=== PATIENT | female | born 1935 | race Caucasian/White ===

== ENCOUNTER 2019-04-10 07:56 | Inpatient (IN) | payer BC, MEDICARE ==
[~2019-04-10] VITALS: Ht 160 cm; Wt 89.8 kg
[2019-04-10] VITALS (7 sets, daily range): BP systolic 139–189; BP diastolic 73–87
[~2019-04-10 07:56] MED LIST: TRAMADOL HCL50 MG; Z.0.ANASTROZOLE1 MG; Z.0.LASIX20 MG; Z.0.LIPITOR20 MG; Z.0.LOPID600 MG; Z.0.LOTREL 10-20 M1; Z.0.METOPROLOL SUC10; Z.0.SERTRALINE HCL10
--- OUTSIDE RECORDS SUMMARY | 2019-04-10 07:58 | XMS REPORT ---
Author Author [facility] Address Unknown Phone Unavailable Care Team Providers Care Sock Drier Name Role Phone Unavailable Unavailable Payers Payer Name Policy Type Policy Number Effective Date Expiration Date Problems This patient has no known problems. Allergies, Adverse Reactions, Alerts Allergy Name Allergy Type Status Severity Reaction(s) Onset Date Inactive Date Treating Clinician Comments iodine DA Active SV 2009-09-08 00:00:00 nitrofurantoin DA Active WI 2009-09-08 00:00:00 simvastatin DA Active WI 2009-09-08 00:00:00 dicyclomine DA Active WI 2009-09-08 00:00:00 barium iodide DA Active WI 2009-09-08 00:00:00 Medications This patient has no known medications.
[2019-04-10] MEDS ORDERED: NITROGLYCERIN 2% OINT 1 GM PKT TOP ONE (08:30)
[2019-04-10 08:37] LABS: BASOPHILS % 0.3 % (0.0-1.0); EOSINOPHILS # (AUTO) 0.3 (0.0-0.4); HEMATOCRIT 37.4 % (34.2-44.1); HEMOGLOBIN 12.6 g/dL (12.0-16.0); LYMPHOCYTES # (AUTO) 2.8 (1.0-3.2); LYMPHOCYTES % 28.4 % (18.0-39.1); MEAN CORPUSCULAR HEMOGLOBIN 32.1 pg (28-32); MEAN CORPUSCULAR HGB CONC 33.7 g/dL (31-35); MEAN CORPUSCULAR VOLUME 95.2 fL (81-99); MONOCYTES % 9.7 % (4.4-11.3); NEUTROPHILS # (AUTO) 5.7 (2.1-6.9); NEUTROPHILS % 58.2 % (38.7-80.0); PLATELET COUNT 189 x10e3/uL (140-360); RED BLOOD COUNT 3.93 x10e6/uL (3.6-5.1); RED CELL DISTRIBUTION WIDTH 14.3 % (11.7-14.4)
[2019-04-10] MEDS ORDERED: ULTRAM50 MG PO (08:42)
[2019-04-10] MEDS ORDERED: LASIX20 MG PO (08:42)
[2019-04-10] MEDS ORDERED: DIOVAN160 MG PO (08:42)
[2019-04-10] MEDS ORDERED: ATORVASTATIN CA10 MG PO (08:42)
[2019-04-10] MEDS ORDERED: NOVOLOG MI100 UNIT/1 (08:42)
[2019-04-10] MEDS ORDERED: HYDRALAZINE HCL10 MG PO (08:42)
[2019-04-10] MEDS ORDERED: METOPROLOL SUCC50 MG PO (08:42)
--- NOTE | 2019-04-10 08:57 | Diagnostic Imaging Report ---
EXAMINATION: CHEST SINGLE (PORTABLE) INDICATION: ^SOB ?CHF ^[id number] ^[id number] COMPARISON: None FINDINGS: AP view TUBES and LINES: None. LUNGS: Limited by body habitus. Pulmonary vascular congestion and mild to moderate interstitial edema. PLEURA: No visible pneumothorax. Small bilateral pleural effusions. HEART AND MEDIASTINUM: The cardiomediastinal silhouette is enlarged. Aorta is calcified and mildly tortuous. BONES AND SOFT TISSUES: No acute osseous lesion. Soft tissues are unremarkable. UPPER ABDOMEN: No free air under the diaphragm. IMPRESSION: Enlarged cardiomediastinal silhouette, pulmonary vascular congestion, and mild to moderate interstitial edema. Small bilateral pleural effusions. Underlying atelectasis/pneumonia cannot be excluded. Signed by: Dr. Jose Portillo MD on 04/10/2019 8:54 AM
[2019-04-10 09:17] LABS: BILIRUBIN,URINE NEGATIVE (NEGATIVE); CLARITY,URINE SL CLOUDY (CLEAR); COLOR,URINE YELLOW (YELLOW); KETONES,URINE NEGATIVE (NEGATIVE); LEUKOCYTE ESTERASE ,URINE NEGATIVE (NEGATIVE); NITRITE,URINE NEGATIVE (NEGATIVE); URINE UROBILINOGEN 0.2 mg/dL (0.2 - 1)
[2019-04-10 09:20] LABS: PROTEIN,URINE DIPSTICK 3+ (NEGATIVE)
[2019-04-10 09:30] LABS: BACTERIA,URINE MODERATE /HPF
[2019-04-10] MEDS ORDERED: FUROSEMIDE INJ 10 MG/ML 4 ML VIAL IV ONE (09:30)
[2019-04-10 09:31] LABS: EPITHELIAL CELLS,URINE FEW /LPF; RBC,URINE 0-5 /HPF (0-5); TRANSITIONAL EPI CELLS,URINE RARE; WBC,URINE (MAN) 0-5 /HPF (0-5)
[2019-04-10 09:32] LABS: INR 0.89; PROTHROMBIN TIME 12.5 seconds (11.9-14.5)
[2019-04-10 09:33] LABS: PARTIAL THROMBOPLASTIN TIME 29.4 seconds (23.8-35.5)
[2019-04-10 09:42] LABS: ALBUMIN 2.9 g/dL (3.5-5.0); ALBUMIN/GLOBULIN RATIO 0.9 (0.8-2.0); ANION GAP 13.3 mmol/L (8-16); CALCIUM 10.5 mg/dL (8.4-10.2); CREATININE, SERUM 1.27 mg/dL (0.57-1.11); MAGNESIUM 1.6 MG/DL (1.3-2.1); POTASSIUM 3.3 mmol/L (3.5-5.1)
[2019-04-10] MEDS ORDERED: POTASSIUM CHLORIDE 20 MEQ TAB CR PO STA (09:58)
[2019-04-10] MEDS ORDERED: MORPHINE SULFATE INJ 4 MG/ML INJ 1ML IV PRN (10:15)
[2019-04-10] MEDS ORDERED: ONDANSETRON HCL INJ 2MG/ML 2ML 2 MG/ML VIAL IV PRN (10:15)
[2019-04-10] MEDS ORDERED: DEXTROSE 50% SYRINGE 50 ML IV PRN (10:15)
[2019-04-10] MEDS: FAMOTIDINE 20 MG/2 ML VIAL IV SCH ×2 (10:56→21:09)
[2019-04-10] MEDS ORDERED: TRAMADOL HCL 50 MG TAB PO PRN (11:45)
--- NOTE | 2019-04-10 12:00 | NUR ---
RECEIVED PT FROM ER. WANDA2. PT FAMILY AT BEDSIDE. BED IS AT THE LOWEST POSITION AND LOCKED. BED ALARM IS ON. CALL LIGHT WITH IN EASY REACH. INSTRUCTED PT TO CALL FOR NEEDS. PT DENIES NEEDS AT THIS TIME.
--- NOTE | 2019-04-10 12:20 | NUR ---
PT IS POOR HISTORIAN. UNABLE TO COLLECT INFORMATION. NO FAMILY PRESENT WITH PT.
[2019-04-10] MEDS: HYDRALAZINE HCL 10 MG TAB PO SCH (13:15)
[2019-04-10] MEDS: INSULIN LISPRO 100 UNIT/1 ML 3ML VIAL SQ SCH ×4 (13:30→20:30)
[2019-04-10] MEDS: METOPROLOL SUCCINATE 50 MG TAB XL PO SCH (13:53)
--- NOTE | 2019-04-10 14:34 | Consultation ---
DATE OF CONSULTATION: 04/10/2019 Cardiology Consultation ATTENDING PHYSICIAN: Dr. Magdi Grimaldo. Thank you so much for asking me to see this nice lady again in consultation. REASON FOR CONSULTATION: Ms. Solomon is a pleasant, but very elderly 83-year-old woman, known to me for many years, who presents to the emergency room with a complaint of shortness of breath. HISTORY OF PRESENT ILLNESS: The patient and her cannot provide me any details and the son is sitting at the bedside. She has not been seen in my office in many years and actually certainly not seen in the last year since she had fracture of her hip from falling in June 2018 with repair. She denies any chest pain or palpitations and notes that her weight has been going up, but she and her both tell me that they are not aware that she is taking a "fluid pill." PAST MEDICAL HISTORY: Significant for previously known coronary artery disease with two stents placed in the right coronary in 2002. She has had a longstanding and severe hypertension. She has had previous cervical cancer and breast cancer and longstanding diabetes. She had a remote cholecystectomy, spine surgery, and breast surgery. MEDICATIONS: Recent home medications include atorvastatin 10 mg daily, furosemide 20 mg daily, hydralazine 10 mg daily, metoprolol succinate 100 mg daily, Diovan 160 mg daily, and tramadol p.r.n. PERSONAL AND SOCIAL HISTORY: She does not smoke or drink and she lives at home with her . REVIEW OF SYSTEMS: CARDIAC: She denies any chest pain or palpitations. PHYSICAL EXAMINATION: GENERAL: At this time shows a pleasant, but very elderly obese woman, about 5 feet 3 inches tall, weighing well over 200 pounds. VITAL SIGNS: Blood pressure 170/70. HEAD, EYES, EARS, NOSE, and THROAT: Unremarkable. THORAX: Heart sounds S1, S2 are equal. No murmurs. Lungs have fine bibasilar crackles. ABDOMEN: Markedly protuberant. EXTREMITIES: Have 1+ pretibial edema. LABS AND DIAGNOSTICS: EKG shows sinus rhythm with left bundle-branch block which was seen on EKG in 2018, but not present on EKG in 2004. Pertinent laboratory studies show sodium 141, potassium 3.3, chloride 104, bicarb 27, glucose 136, BUN 26, creatinine 1.2. CBC shows hemoglobin 12.6, hematocrit 37.7, white count 9.8. Current echocardiogram suggest that her left ventricular function is less than 20%. EF of interest is that echocardiogram on June 12, 2018, showed mild left ventricular hypertrophy, normal systolic function, EF of 52%, reduced diastolic compliance, prominent epicardial fat pad, trace tricuspid regurgitation, and right ventricular systolic pressure normal. ASSESSMENT: 1. Exacerbation of congestive heart failure. 2. New diagnosis of cardiomyopathy. 3. Left bundle-branch block seen on EKG in 2017, but not present in 2005. 4. Longstanding severe hypertension. 5. Type 2 adult-onset diabetes. 6. Obesity. 7. Advanced age. PLAN: We will continue home medications and give her diuretics and review echocardiogram with further management based on clinical course. Her prognosis is guarded. MD FREDERICK Goodwin/MODL /[id number]
--- NOTE | 2019-04-10 17:22 | NUR ---
PT IS COMPLAINING OF PAIN. PER THE PT, SHE IS TAKING TRAMADOL WITH TYLENOL. PAGED DR. ANN OFFICE. NO NEW ORDERS RECEIVED.
[2019-04-10] MEDS: ACETAMINOPHEN 325 MG TAB PO PRN ×2 (18:02→22:07)
--- NOTE | 2019-04-10 19:00 | NUR ---
BEDSIDE SHIFT REPORT GIVEN TO THE NURSE INFORMATICS EDUCATOR RN. PT DENIED FURTHER NEEDS.
[2019-04-10] MEDS: TRAMADOL HCL 50 MG TAB PO PRN ×2 (19:09→23:31)
[2019-04-10] MEDS: FUROSEMIDE INJ 10 MG/ML 4 ML VIAL IV SCH (20:10)
[2019-04-10] MEDS: VALSARTAN 160 MG TAB PO SCH (20:11)
[2019-04-10] MEDS ORDERED: DIGOXIN INJ 0.25 MG/ML 2 ML AMP IV ONE (22:00)
--- NOTE | 2019-04-10 22:01 | NUR ---
NOTIFIED DR ROACH PATIENT WAS RUNNING AFIB. BP 139/79 HR 137. NEW ORDER RECEIVED
[2019-04-11] VITALS (8 sets, daily range): BP systolic 164–186; BP diastolic 70–77
[2019-04-11 06:06] LABS: BASOPHILS # (AUTO) 0.1 (0.0-0.1); BASOPHILS % 0.7 % (0.0-1.0); EOSINOPHILS # (AUTO) 0.2 (0.0-0.4); EOSINOPHILS % 3.2 % (0.0-6.0); HEMATOCRIT 34.5 % (34.2-44.1); HEMOGLOBIN 11.2 g/dL (12.0-16.0); LYMPHOCYTES # (AUTO) 2.3 (1.0-3.2); LYMPHOCYTES % 32.4 % (18.0-39.1); MEAN CORPUSCULAR HEMOGLOBIN 31.6 pg (28-32); MEAN CORPUSCULAR HGB CONC 32.5 g/dL (31-35); MEAN CORPUSCULAR VOLUME 97.5 fL (81-99); MONOCYTES # (AUTO) 0.9 (0.2-0.8); NEUTROPHILS # (AUTO) 3.6 (2.1-6.9); NEUTROPHILS % 50.1 % (38.7-80.0); PLATELET COUNT 146 x10e3/uL (140-360); RED BLOOD COUNT 3.54 x10e6/uL (3.6-5.1); RED CELL DISTRIBUTION WIDTH 14.1 % (11.7-14.4)
[2019-04-11 06:24] LABS: ALBUMIN 2.7 g/dL (3.5-5.0); ALBUMIN/GLOBULIN RATIO 0.9 (0.8-2.0); ANION GAP 13.4 mmol/L (8-16); CALCIUM 9.7 mg/dL (8.4-10.2); CHOL/HDL RATIO 2.8 (3.0-3.6); CREATININE, SERUM 1.34 mg/dL (0.57-1.11); POTASSIUM 3.4 mmol/L (3.5-5.1)
[2019-04-11 06:45] LABS: CREATINE KINASE MB 0.9 ng/mL (0-5.0)
--- NOTE | 2019-04-11 07:00 | NUR ---
BEDSIDE SHIFT REPORT RECEIVED FROM THE FLOWER ARRANGER RN. PT DENIES NEEDS AT THIS TIME.
[2019-04-11] MEDS: INSULIN LISPRO 100 UNIT/1 ML 3ML VIAL SQ SCH ×4 (07:30→21:47)
[2019-04-11] MEDS: HYDRALAZINE HCL 10 MG TAB PO SCH (08:57)
[2019-04-11] MEDS: ASPIRIN 81 MG ENTERIC COATED PO SCH (08:58)
[2019-04-11] MEDS: METOPROLOL SUCCINATE 50 MG TAB XL PO SCH ×2 (08:59→10:05)
[2019-04-11] MEDS: FUROSEMIDE INJ 10 MG/ML 4 ML VIAL IV SCH ×2 (09:03→21:45)
--- NOTE | 2019-04-11 10:03 | NUR ---
SKY TO ADMINISTER METOPROLOL PER DR. THOMAS.
[2019-04-11] MEDS ORDERED: POTASSIUM CHLORIDE 20 MEQ TAB CR PO SCH (10:45)
[2019-04-11] MEDS: FAMOTIDINE 20 MG/2 ML VIAL IV SCH (11:10)
[2019-04-11] MEDS ORDERED: HYDRALAZINE HCL 10 MG TAB PO SCH (12:00)
[2019-04-11] MEDS: HYDRALAZINE HCL 25 MG TAB PO SCH ×2 (12:47→17:00)
[2019-04-11 14:08] LABS: CREATINE KINASE MB 0.9 ng/mL (0-5.0)
--- NOTE | 2019-04-11 16:38 | Progress Note ---
DATE: 04/11/2019 Internal Medicine Progress Note SUBJECTIVE: The patient is sleeping comfortably. PHYSICAL EXAMINATION: VITAL SIGNS: Blood pressure 169/72, temperature 97.8, heart rate 64 per minute, respiratory rate 18 per minute, oxygen saturation 99%. HEART: Showed regular rhythm. Normal S1, S2 sound. LUNGS: Clear bilaterally. ABDOMEN: Soft. EXTREMITIES: Show no evidence of cyanosis or hematoma. LABORATORY DATA: BMP; sodium 142, potassium 3.4, chloride 104, CO2 28, BUN 26, creatinine 1.34, glucose 144. CBC; white count 7.22, hemoglobin 11.2, hematocrit 34.5, platelet count of 146,000. PT 12.5, INR 0.89, PTT 29.4. AST 21, ALT 15, total bilirubin 0.6, alkaline phosphatase 60. FINAL IMPRESSION: 1. Acute on chronic systolic congestive heart failure with ejection fraction of 20%. 2. Hypertension. 3. Coronary artery disease. 4. Anemia of chronic disease. 5. Acute renal failure with chronic renal insufficiency. 6. Hypokalemia. PLAN OF TREATMENT: We are going to continue aspirin 81 mg daily, Zofran 4 mg IV every 4 hours as needed, morphine 2 mg IV every 3 hours as needed, hydralazine 10 mg daily, Tylenol 650 mg q.4 hours as needed for pain or fever, Pepcid 20 mg twice a day, metoprolol 100 mg daily, Crestor 10 mg daily, furosemide 40 mg twice a day, valsartan 320 mg daily. Continue monitoring blood sugar before meals and at bedtime. Continue tramadol 50 mg q.6 hours. I am going to add potassium 20 mEq daily due to the low potassium and recheck a BMP tomorrow. We need to increase the hydralazine to 25 mg twice a day. MD LAURA Perez/ELSA /[id number]
[2019-04-11] MEDS ORDERED: HYDRALAZINE HCL 25 MG TAB PO SCH (17:00)
--- NOTE | 2019-04-11 17:53 | NUR ---
Nutrition Screen Note RD Recommendation for Physician: -Rec adding cardiac to ADA 1800 diet Plan of Care: RD following, monitoring for tolerance and adequacy Nutrition reason for involvement: Diagnosis Primary Diagnose(s): 1. Exacerbation of congestive heart failure. 2. New diagnosis of cardiomyopathy. PMH: CAD, HTN, cervical cancer, breast cancer, DM Ht: 63in Wt: 198lb BMI: 35.1kg/m2 IBW: 115lb +/- 10% RD Assessment: (04/11) Chart reviewed. Labs and meds reviewed. 83yo F, who was admitted for CHF exacerbation. Visited pt in the room. Pt was sleeping. Per , pt has had good appetite with 75% observed lunch intake. No complains of nausea or vomiting. Normal BM. No chewing or swallowing difficulty noted. Pt has gained 6-7lbs in the last 5-6 months. Apparently, stated her CHF was newly diagnosed and not aware that pt was taking a fluid pill. RD offered education on low sodium diet but was not interested. Will continue to monitor and follow. Current Diet: ADA 1800 Malnutrition Evaluation (04/11/2019) The patient does not meet criteria for a specified degree of malnutrition at this time. Will re-evaluate at follow-up as appropriate. Diet Education Needs Assessment: Diet education indicated, is not interested. Briefly discussed importance of low sodium intake and weight management. Nutrition Care Level: low Signed: Ynes Stearns MS, RD, LD
--- NOTE | 2019-04-11 19:00 | NUR ---
Bedside report received from morning nurse. Pt alert to name. Lying in bed. Denies pain at this time. O2 @3L via NC. Call blevins within reach. Bed low and locked. Will continue to monitor.
--- NOTE | 2019-04-11 19:00 | NUR ---
BEDSIDE SHIFT REPORT GIVEN TO THE ELECTRIC MOTOR WINDERS ASSEMBLER RN. PT DENIED FURTHER NEEDS.
[2019-04-11] MEDS: CRESTOR 10MG PO SCH ×2 (21:45→21:48)
[2019-04-12] VITALS (8 sets, daily range): BP systolic 134–187; BP diastolic 59–79
[2019-04-12 05:40] LABS: ANION GAP 15.5 mmol/L (8-16); CALCIUM 9.5 mg/dL (8.4-10.2); CREATININE, SERUM 1.31 mg/dL (0.57-1.11); POTASSIUM 3.5 mmol/L (3.5-5.1)
[2019-04-12] MEDS: HYDRALAZINE HCL 25 MG TAB PO SCH ×4 (06:00→17:28)
[2019-04-12] MEDS: INSULIN LISPRO 100 UNIT/1 ML 3ML VIAL SQ SCH ×4 (07:30→21:00)
[2019-04-12] MEDS: VALSARTAN 160 MG TAB PO SCH (09:35)
[2019-04-12] MEDS: ASPIRIN 81 MG ENTERIC COATED PO SCH (09:35)
[2019-04-12] MEDS: METOPROLOL SUCCINATE 50 MG TAB XL PO SCH (09:35)
[2019-04-12] MEDS: FUROSEMIDE INJ 10 MG/ML 4 ML VIAL IV SCH ×2 (09:35→21:45)
[2019-04-12] MEDS: POTASSIUM CHLORIDE 20 MEQ TAB CR PO SCH (09:35)
--- NOTE | 2019-04-12 12:15 | NUR ---
MD notified regarding increased agitation and confusion to pt. New orders received at this time.
--- NOTE | 2019-04-12 16:28 | Progress Note ---
DATE: 04/12/2019 Internal Medicine Progress Note SUBJECTIVE: The patient is doing well. . PHYSICAL EXAMINATION: VITAL SIGNS: Blood pressure 134/59, temperature 98.7, heart rate 75 per minute, respiratory rate 22 per minute, oxygen saturation 98%. HEART: Regular rhythm. Normal S1, S2 sound. LUNGS: Clear bilaterally. ABDOMEN: Soft. EXTREMITIES: No evidence of cyanosis or hematoma. LABORATORY DATA: BMP; sodium 144, potassium 3.5, chloride 103, CO2 29, BUN 27, creatinine 1.31, glucose 201. CBC; white blood count 7.22, hemoglobin 11.2, hematocrit 34.5, platelet count 146,000. PT 12.5, INR 0.89, PTT 29.4. AST 21, ALT 16, total bilirubin 0.6, alkaline phosphatase 60. IMPRESSION: 1. Acute on chronic systolic congestive heart failure with an ejection fraction of 20%. 2. Hypertension with hypertensive nephropathy. 3. Coronary artery disease. 4. Chronic anemia. 5. Acute on chronic renal failure. 6. Hypokalemia. 7. Uncontrolled diabetes mellitus type 2 with chronic renal failure. PLAN OF TREATMENT: 1. Continue aspirin 81 mg daily. 2. Zofran 4 mg IV q.4 hours as needed. 3. Morphine 2 mg IV q.3 hours as needed. 4. Valsartan 320 mg daily. 5. Hydralazine 25 mg q.6 hours. 6. Furosemide 40 mg IV twice a day. 7. Tramadol 50 mg q.4 hours. 8. Potassium chloride 20 mEq daily. 9. Continue monitoring blood sugar before meals and at bedtime. 10. We are going to start glimepiride 2 mg daily because of the persistent hyperglycemia. 11. Continue Tylenol 650 mg q.4 hours as needed for pain or fever. 12. Metoprolol 100 mg daily. 13. Crestor 10 mg daily. We are going to continue monitoring BUN, creatinine, and electrolytes. Case has been discussed with Dr. Kevyn Farris, Cardiology service. The patient had a very severe cardiomyopathy. MD LAURA Perez/ELSA /[id number]
[2019-04-12] MEDS: CRESTOR 10MG PO SCH (21:45)
--- NOTE | 2019-04-12 21:50 | NUR ---
PATIENT ASSISTED WITH ADLS, NO RESPIRATORY DISTRESS OBSERVED. DIABETIC SNACKS PROVIDED, BED ALARM ON, CALL LIGHT WITHIN EASY REACH.
[2019-04-13] VITALS (7 sets, daily range): BP systolic 140–181; BP diastolic 66–76
[2019-04-13] MEDS: HYDRALAZINE HCL 25 MG TAB PO SCH ×4 (00:28→17:49)
--- NOTE | 2019-04-13 00:30 | NUR ---
BLOOD PRESSURE 181/76, HEART RATE 75. SCHEDULE HYDRALAZINE ADMINISTERED ORDERED, NO DISTRESS OBSERVED AND PATIENT DENIES PAIN.
[2019-04-13] MEDS: TRAMADOL HCL 50 MG TAB PO PRN ×2 (03:22→17:21)
--- NOTE | 2019-04-13 03:23 | NUR ---
PATIENT WAS ASSISTED TO THE RESTROOM BY THE PCT, SHE'S NOW BACK IN BED WITH BED ALARM ON AND CALL LIGHT WITHIN EASY REACH. SHE C/O HEADACHE, MEDICATED WITH TRAMADOL ORDERED, INSTRUCTED TO CALL FOR ASSISTANCE NEEDED.
[2019-04-13 06:40] LABS: ANION GAP 15.6 mmol/L (8-16); CALCIUM 9.4 mg/dL (8.4-10.2); CREATININE, SERUM 1.29 mg/dL (0.57-1.11); POTASSIUM 3.6 mmol/L (3.5-5.1)
[2019-04-13] MEDS: INSULIN LISPRO 100 UNIT/1 ML 3ML VIAL SQ SCH ×4 (07:30→21:00)
[2019-04-13] MEDS: GLIMEPIRIDE 2 MG TAB PO SCH (09:42)
[2019-04-13] MEDS: FUROSEMIDE INJ 10 MG/ML 4 ML VIAL IV SCH (09:42)
[2019-04-13] MEDS: ASPIRIN 81 MG ENTERIC COATED PO SCH (09:42)
[2019-04-13] MEDS: METOPROLOL SUCCINATE 50 MG TAB XL PO SCH (09:43)
[2019-04-13] MEDS: VALSARTAN 160 MG TAB PO SCH (09:43)
[2019-04-13] MEDS: POTASSIUM CHLORIDE 20 MEQ TAB CR PO SCH (09:43)
--- NOTE | 2019-04-13 16:11 | Progress Note ---
DATE: 04/13/2019 Internal Medicine Progress Note SUBJECTIVE: The patient is doing well. No significant complaint. PHYSICAL EXAMINATION: VITAL SIGNS: Blood pressure 162/71, temperature 97.4 degrees Fahrenheit, heart rate 78 per minute, respiratory rate 19 per minute, and oxygen saturation 98%. HEART: Showed regular rhythm. Normal S1, S2 sound. LUNGS: Clear bilaterally. ABDOMEN: Soft. EXTREMITIES: Show no evidence of cyanosis or hematoma. LABORATORY DATA: Sodium 142, potassium 3.6, chloride 102, CO2 of 28, BUN 31, creatinine 1.29, and glucose 289. On CBC, white count 7.22, hemoglobin 11.2, hematocrit 34.5, and platelet count 146,000. PT 12.5, INR 0.89, PTT 29.4. AST 21, ALT 15, total bilirubin 0.6, and alkaline phosphatase 60. FINAL IMPRESSION: 1. Homau-ng-zyrotfi systolic congestive heart failure, which is resolving. 2. Hypertension with renal insufficiency. 3. Coronary artery disease. 4. Anemia of chronic disease. 5. Cpmix-cp-ewzptse renal insufficiency, stage 3. 6. Hypokalemia. 7. Uncontrolled diabetes mellitus type 2 with chronic renal insufficiency. PLAN OF TREATMENT: Continue aspirin 81 mg daily. Continue Zofran 4 mg q.4 hours as needed, morphine 2 mg IV q.3 hours as needed, D50 IV push as needed, valsartan 320 mg daily, hydralazine 25 mg q.6 hours, furosemide 40 mg twice a day, tramadol 50 mg q.4 hours as needed, potassium chloride 20 mEq daily. Continue monitoring blood sugar before meal and at bedtime. Continue diabetic renal diet. Continue Tylenol 650 mg p.o. q.4 hours as needed for pain or fever. Continue glimepiride 2 mg daily, metoprolol 100 mg daily, and Crestor 10 mg daily. She will be DNR. The patient is doing well. We might be able to switch the furosemide to p.o. and hopefully discharge soon. MD LAURA Perez/ELSA /[id number]
[2019-04-13] MEDS: FUROSEMIDE 40 MG TAB PO SCH (17:49)
--- NOTE | 2019-04-13 19:26 | NUR ---
Patient received asleep in bed. Arousable to tactile stimuli. No signs of pain, discomfort or respiratory distress noted. Telemetry in place recording SR at 73 (Right bundle branch block). Fall precautions implemented. Call light within reach.
[2019-04-13] MEDS: INSULIN GLARGINE 100 UNITS/ML VIAL SQ SCH (21:00)
[2019-04-13] MEDS: CRESTOR 10MG PO SCH (21:22)
[2019-04-14] VITALS (8 sets, daily range): BP systolic 128–154; BP diastolic 60–70
[2019-04-14] MEDS: HYDRALAZINE HCL 25 MG TAB PO SCH ×4 (00:35→17:53)
[2019-04-14] MEDS: TRAMADOL HCL 50 MG TAB PO PRN (03:08)
--- NOTE | 2019-04-14 06:25 | NUR ---
Patient's IV in right arm infiltrated. Old IV removed with tip intact. New IV inserted in Right forearm 22G. Patient tolerated well. Addendum: 04/14/19 at 0730 by Edmond Durand RN Above entry for wrong patient.
[2019-04-14] MEDS: FUROSEMIDE 40 MG TAB PO SCH ×2 (06:33→17:53)
[2019-04-14] MEDS: ACETAMINOPHEN 325 MG TAB PO PRN ×2 (06:41→21:28)
--- NOTE | 2019-04-14 07:16 | NUR ---
Shift report given to oncoming nurse.
[2019-04-14] MEDS: INSULIN LISPRO 100 UNIT/1 ML 3ML VIAL SQ SCH ×4 (07:30→21:00)
[2019-04-14] MEDS: GLIMEPIRIDE 2 MG TAB PO SCH (08:21)
[2019-04-14] MEDS: POTASSIUM CHLORIDE 20 MEQ TAB CR PO SCH (08:21)
[2019-04-14] MEDS: VALSARTAN 160 MG TAB PO SCH (08:21)
[2019-04-14] MEDS: METOPROLOL SUCCINATE 50 MG TAB XL PO SCH (08:21)
[2019-04-14] MEDS: ASPIRIN 81 MG ENTERIC COATED PO SCH (08:21)
--- NOTE | 2019-04-14 15:31 | NUR ---
IMM letter delivered and explained to pt. She verbalized understanding. Signed copy placed in chart. Copy to pt.
--- NOTE | 2019-04-14 19:13 | NUR ---
bedside rounds done with oncoming nurse, pt lying in bed, resp even and unlabored. call light within reach.
--- NOTE | 2019-04-14 19:19 | NUR ---
Patient received asleep in bed. Arousable to tactile stimuli. No signs of pain or respiratory distress. Bed locked and in lowest position. Bed rails up x 2. Call light within reach.
[2019-04-14] MEDS: INSULIN GLARGINE 100 UNITS/ML VIAL SQ SCH (21:00)
[2019-04-14] MEDS: CRESTOR 10MG PO SCH (21:37)
--- NOTE | 2019-04-14 22:50 | NUR ---
Patient's IV on left wrist infiltrated. Old IV removed with tip intact. Patient refused insertion of new IV because of her pending discharge tomorrow morning. Patient instructed of the importance of having vascular access for IV antibiotics and medical emergencies, but she still declined.
[2019-04-15] MEDS: HYDRALAZINE HCL 25 MG TAB PO SCH ×3 (00:04→12:10)
[2019-04-15 00:17] VITALS: BP 108/68
[2019-04-15 03:28] VITALS: BP 108/68
--- NOTE | 2019-04-15 05:05 | NUR ---
quality control technician called reporting patient's rhythm as Afib with a HR of 132. EKG done with the following result: Wide QRS rhythm with premature supraventricular complexes. Dr. Farris notified. No new order received.
[2019-04-15] MEDS: FUROSEMIDE 40 MG TAB PO SCH (05:13)
[2019-04-15 05:43] LABS: ANION GAP 15.6 mmol/L (8-16); CALCIUM 9.2 mg/dL (8.4-10.2); CREATININE, SERUM 1.16 mg/dL (0.57-1.11); POTASSIUM 3.6 mmol/L (3.5-5.1)
[2019-04-15 05:48] VITALS: BP 98/63
--- NOTE | 2019-04-15 07:00 | NUR ---
Walking rounds done. Shift report given o oncoming nurse about patient's status.
[2019-04-15] MEDS: INSULIN LISPRO 100 UNIT/1 ML 3ML VIAL SQ SCH ×2 (07:30→11:30)
--- NOTE | 2019-04-15 07:30 | NUR ---
REC'D PT AAOX3, EATING BREAKFAST, ON OXYGEN 2L/MIN, NO S/S OF DISTRESS. TELE BOX#24 RUNNING AT SR, LEFT AC IV INTACT AND PATENT. SIDE RAILS UPX2, BED IN LOWEST POSITION, AND CALL GRAY WITHIN REACH.
[2019-04-15 07:44] VITALS: BP 187/81
[2019-04-15] MEDS: ASPIRIN 81 MG ENTERIC COATED PO SCH (08:27)
[2019-04-15] MEDS: GLIMEPIRIDE 2 MG TAB PO SCH (08:27)
[2019-04-15] MEDS: VALSARTAN 160 MG TAB PO SCH (08:28)
[2019-04-15] MEDS: POTASSIUM CHLORIDE 20 MEQ TAB CR PO SCH (08:28)
[2019-04-15] MEDS: METOPROLOL SUCCINATE 50 MG TAB XL PO SCH (08:29)
[2019-04-15] MEDS ORDERED: ONDANSETRON HCL 4 MG ORAL DISINTEGRATING TAB PO PRN (10:45)
[2019-04-15 11:55] VITALS: BP 151/68
--- NOTE | 2019-04-15 15:00 | NUR ---
DR. ANN PLACED DISCHARGE ORDER.
[2019-04-15 16:00] VITALS: BP 158/65
--- NOTE | 2019-04-15 16:00 | NUR ---
PT DISCUSSED IN BARRIER ROUNDS, ON IV LASIX, MAY SWITCH TO PO AND DISCHARGE HOME TODAY OR TOMORROW.
--- NOTE | 2019-04-15 17:22 | NUR ---
PATIENTS IV REMOVED WITHOUT ANY COMPLICATIONS. DISCHARGE PAPERS GIVEN AND EXPLAINED TO PATIENT AND HER SON. AND TO ALSO FOLLOW UP WITH PCP IN 1-2 WEEKS. TELE BOX REMOVED. ESCORTED PATIENT TO FRONT OF HOSPITAL AND INTO SON'S CAR.
--- NOTE | 2019-05-20 05:01 | Discharge Summary ---
CHIEF COMPLAINT: Progressive shortness of breath and postural nocturnal dyspnea. FINAL DIAGNOSES: Acute on chronic congestive heart failure, coronary artery disease, and hypertension. DISPOSITION: Home. HOSPITAL COURSE: 83-year-old female with known history of diabetes type 2, essential systolic hypertension, and chronic systolic congestive heart failure, presents to the ER with a 3-day history of progressive shortness of breath and possible nocturnal dyspnea. No complaints of chest pain. No nausea, vomiting, or cough. She underwent review and evaluation in the emergency room. Chest was revealing inspiratory crackles with basilar rales. X-rays blood work were being conducted, findings were showing evidence of acute pulmonary edema. The patient was admitted for treatment regarding increased shortness of breath with a 3-day history, acute on chronic systolic congestive heart failure, diabetes type 2, coronary artery disease, essential systolic hypertension along with admission, for care, we will be initiating IV Lasix, we are monitoring the patient's electrolyte status along with blood pressure, requesting a Cardiology followup. With admission with her presentation of complaint, she underwent cardiology review per Dr. Farris, at his evaluation his impression was exacerbation of congestive heart failure, new diagnosis of cardiomyopathy, left bundle-branch block in 2018, it was not present and 2005; long-standing severe hypertension; type 2 adult onset diabetes; obesity; and advanced age. Recommend continuing home medications, maintaining diuretics. Prognosis is guarded. The patient was waiting for room placement in the ER, was receiving ADA diet. Underwent cardiology evaluation by Dr. Farris in the ER. Laboratory studies were being watched closely. She was upgraded to the Medical Surgical floor from the ER, and was noted to have a slightly decreased potassium and Dr. Farris also noted the patient was having cardiomyopathy, which has developed in the past year. The patient was resting comfortably, was having no new complaints. Her medications are being adjusted as needed. Lab studies were being watched closely. She has some issues where her EKGs were showing episodes of atrial flutter. Medications are being further be adjusted. She began to feel better overall. She was in no acute distress. Continued to receive diuretics. BP was continued to be monitored closely. Potassium was noted to have stabilized now. Dr. Farris was further following and making comments that the patient was not a good candidate for anticoagulation. Recommending compassionate care. The patient was cleared for discharge, she was able to be released home on 04/15/2019 in guarded condition. IMAGING: Chest findings shows enlarged cardiomediastinal silhouette, pulmonary vascular congestion and [id number] interstitial edema. Small bilateral pleural effusions. Underlying atelectasis or pneumonia cannot be excluded. Cultures; urine noncontributory. LABORATORY DATA: Laboratory studies were showing stable CBCs. Urinalysis showing 3+ protein, 0-5 rbc's by high-power field, 0-5 wbc's by high-power field, moderate amount of bacteria. Chemistries: Begins with electrolyte panel revealing a low potassium at 3.3. Kidney functions; normal BUN and creatinine was 1.27. Initial glucose 136. BNP was noted to be 1180. Cardiac enzymes were stable for 3 sets. Blood sugars were further monitored, blood sugars as high as 304. Final blood sugar 231, final potassium 3.6, final BUN 33 and creatinine 1.16. As mentioned, the patient is stabilized. She will be discharged home and continue following up for management on outpatient basis. She will continue on a cardiac diet. No equipments or supplies necessary. No drains or Saini needed. Activity level as directed by myself as well as Dr. Farris. The patient will be following up with her PCP within 7 to 10 days. She will continue on atorvastatin 10 mg p.o. at 9 p.m., Lasix 20 mg daily, hydralazine 10 mg p.o. daily, NovoLog mix 70/30 as directed, metoprolol succinate 100 mg p.o. daily, Ultram 50 mg p.o. p.r.n. for pain, and Diovan 320 p.o. daily. Any questions or concerns, she might have any recurrence of similar symptoms, she will be contacting her PCP on the phone. Dictated by DALJIT Fisher Maurice Grimaldo MD CC/MODL /[id number]
== END 2019-04-15 18:28 | disposition home or self-care (01) | DRG 291 ==
LOC: ER 07:56 → ERHOLD 10:11 → MED/SURG2 12:56
DX: I13.0 Hypertensive heart and chronic kidney disease with heart failure and stage 1 through stage 4 chronic kidney disease, or unspecified chronic kidney disease (principal); I50.23 Acute on chronic systolic (congestive) heart failure; N17.9 Acute kidney failure, unspecified; I25.10 Atherosclerotic heart disease of native coronary artery without angina pectoris; Z88.8 Allergy status to other drugs, medicaments and biological substances; E66.9 Obesity, unspecified; Z68.35 Body mass index [BMI] 35.0-35.9, adult; D63.8 Anemia in other chronic diseases classified elsewhere; E87.6 Hypokalemia; E11.21 Type 2 diabetes mellitus with diabetic nephropathy; E11.22 Type 2 diabetes mellitus with diabetic chronic kidney disease; E11.65 Type 2 diabetes mellitus with hyperglycemia; N18.3 Chronic kidney disease, stage 3 (moderate); Z95.5 Presence of coronary angioplasty implant and graft; Z79.4 Long term (current) use of insulin
CPT/HCPCS: 36415; 71045; 80048; 80053; 80061; 81001; 82550; 82553; 82948; 83735; 83880; 84484; 85025; 85610; 85730; 87086; 93005; 93306; 96372; 96376; 99285; J1160; J1815; J1940; J2270

== ENCOUNTER 2019-08-12 08:41 | Inpatient (IN) | payer BC, MEDICARE ==
[~2019-08-12] VITALS: Ht 152.4 cm; Wt 77.6 kg
[~2019-08-12 08:41] MED LIST changes: +ATORVASTATIN CA10 MG PO; +DIOVAN160 MG PO; +HYDRALAZINE HCL10 MG PO; +LASIX20 MG PO; +METOPROLOL SUCC50 MG PO; +NOVOLOG MI100 UNIT/1; +ULTRAM50 MG PO
[2019-08-12] MEDS ORDERED: PANTOPRAZOLE 40 MG 10ML VIAL IV STA (09:16)
[2019-08-12] MEDS ORDERED: SODIUM CHLORIDE 0.9% 1000ML 1,000 ML IV STA (09:16)
[2019-08-12] MEDS ORDERED: ONDANSETRON HCL INJ 2MG/ML 2ML 2 MG/ML VIAL IV PRN (09:30)
[2019-08-12] MEDS ORDERED: FOLIC ACID 5 MG/ML VIAL IV ONE (09:30)
[2019-08-12] MEDS ORDERED: DEXTROSE 50% SYRINGE 50 ML IV PRN (09:30)
[2019-08-12 09:44] LABS: BASOPHILS % 0.4 % (0.0-1.0); EOSINOPHILS # (AUTO) 0.2 (0.0-0.4); EOSINOPHILS % 2.4 % (0.0-6.0); HEMOGLOBIN 12.7 g/dL (12.0-16.0); LYMPHOCYTES # (AUTO) 2.8 (1.0-3.2); LYMPHOCYTES % 34.5 % (18.0-39.1); MEAN CORPUSCULAR HEMOGLOBIN 31.6 pg (28-32); MEAN CORPUSCULAR HGB CONC 33.4 g/dL (31-35); MEAN CORPUSCULAR VOLUME 94.5 fL (81-99); MONOCYTES # (AUTO) 0.9 (0.2-0.8); MONOCYTES % 11.1 % (4.4-11.3); NEUTROPHILS # (AUTO) 4.2 (2.1-6.9); NEUTROPHILS % 51.2 % (38.7-80.0); PLATELET COUNT 186 x10e3/uL (140-360); RED BLOOD COUNT 4.02 x10e6/uL (3.6-5.1); RED CELL DISTRIBUTION WIDTH 14.6 % (11.7-14.4)
[2019-08-12 09:48] LABS: INR 0.88; PROTHROMBIN TIME 12.4 seconds (11.9-14.5)
[2019-08-12 09:49] LABS: PARTIAL THROMBOPLASTIN TIME 25.3 seconds (23.8-35.5)
--- NOTE | 2019-08-12 09:49 | Diagnostic Imaging Report ---
EXAMINATION: Head CT HISTORY: Left-sided facial drooping and weakness since the night before, acute stroke syndrome, evaluate for CVA COMPARISON: None. TECHNIQUE: Multidetector axial images were obtained without contrast from the foramen magnum to the vertex . The images were reconstructed using brain and bone algorithms. Thin section brain images were reformatted into coronal and sagittal planes. Image quality: Motion/streaking artifact limits the evaluation of the skull base and posterior cranial fossa. Dose modulation, iterative reconstruction, and/or weight based adjustment of the mA/kV was utilized to reduce the radiation dose to as low as reasonably achievable. FINDINGS: Parenchyma: 1. Focal hypodensity in the left frontal centrum semiovale may correspond to acute ischemic lacunar infarct. 2. Additional hypodensity lateral to the left head of the caudate nucleus may correspond with age-indeterminate, likely chronic lacunar infarct. 3. Also subtle hypodensity in the right central thalamus may correspond to a recent ischemic lacunar infarct. 4. Few scattered mildly confluent periventricular and hassan radiata white matter hypodensities, most likely nonspecific chronic microvascular ischemic changes. 5. Cortical/subcortical hypodensity in the right lateral pre and postcentral gyri with focal swelling is consistent with acute infarction. 6. No mass or hemorrhage. No CT evidence of acute territorial vascular insult. Extra-axial spaces:No abnormal density. No extra-axial fluid collections Brain volume: Normal for age. Ventricles: No hydrocephalus or displacement. Arteries: No density suggestive of thrombus. Dural sinuses: No abnormal density. Extra-axial spaces: No abnormal density. Foramen magnum: No mass, Chiari malformation, or basilar invagination. Sella: No obvious mass. Paranasal/mastoid sinuses: Imaged portions unremarkable. Skull/Scalp: No lytic or blastic lesions. No fractures. IMPRESSION: 1. 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 A CT angiogram of the head and neck with contrast is recommended to evaluate for large vessel occlusion as the patient is within the window for thrombectomy. 2. Age indeterminate ischemic lacunar infarcts in the left frontal centrum semiovale, lateral to the left caudate nucleus and right thalamus. 3. No acute intracranial hemorrhage. The findings were discussed with the ER nurse practitioner Dayami Chavarria on 08/12/2019 at 9:40 AM Signed by: Dr. Anat Reina M.D. on 08/12/2019 9:46 AM
[2019-08-12 09:58] LABS: ALBUMIN 3.2 g/dL (3.5-5.0); ALBUMIN/GLOBULIN RATIO 0.9 (0.8-2.0); ANION GAP 17.3 mmol/L (8-16); CALCIUM 10.7 mg/dL (8.4-10.2); CREATININE, SERUM 1.62 mg/dL (0.57-1.11); POTASSIUM 4.3 mmol/L (3.5-5.1)
--- NOTE | 2019-08-12 09:59 | Diagnostic Imaging Report ---
EXAMINATION: CHEST SINGLE (PORTABLE) INDICATION: Chest pain COMPARISON: Chest radiograph of 04/10/2019 FINDINGS: LINES/TUBES:EKG leads overlie the chest. LUNGS:The lung volumes are low. There is central pulmonary vascular congestion. There is perihilar fullness and indistinctness of the pulmonary vasculature. Patchy opacity at the left lung base. PLEURA:No pleural effusion or pneumothorax. MEDIASTINUM:Cardiomediastinal silhouette is stably enlarged. Atherosclerotic calcifications of the thoracic aorta. BONES/SOFT TISSUES:No acute osseous injury. ABDOMEN:No free air under the diaphragm. IMPRESSION: Unchanged cardiomegaly. Mild pulmonary interstitial edema. Patchy opacity at the left lung base, more likely subsegmental atelectasis than superimposed aspiration or pneumonia. Signed by: Lubna Rowell MD on 08/12/2019 9:56 AM
[2019-08-12 10:04] LABS: CREATINE KINASE MB 0.4 ng/mL (0-5.0)
[2019-08-12] MEDS ORDERED: ASPIRIN 81 MG ENTERIC COATED PO SCH (10:30)
--- NOTE | 2019-08-12 11:27 | Diagnostic Imaging Report ---
EXAMINATION: CT angiogram of the [place] and neck with contrast CLINICAL HISTORY: Acute stroke with left facial weakness COMPARISON: Head CT performed the same day TECHNIQUE: The head and neck was scanned utilizing a multidetector helical scanner from the thoracic inlet to the vertex after the I.V contrast administration of 100 mL of Isovue-370. Multiplanar sagittal and coronal reconstructions were performed as well. For optimization of of anatomic evaluation, multi-planar reconstructions, maximum intensity projections, and advanced 3D off-line post-processing was obtained and performed on a dedicated stand-alone workstation under the direct supervision of the interpreting physician. Dose modulation, iterative reconstruction, and/or weight based adjustment of the mA/kV was utilized to reduce the radiation dose to as low as reasonably achievable. FINDINGS: CT ANGIOGRAM OF THE [place]: Calcified atherosclerotic plaque in the bilateral carotid siphons without significant stenosis. Otherwise the internal carotid artery segments as well as the middle cerebral and anterior cerebral arteries are normal in caliber. The vertebro-basilar circulation is normal. No vascular malformation or aneurysmal dilatation is seen. The draining venous structures are normal and patent. The collateral vessels are symmetric. Anatomic variation: Anterior Communicating Artery: Not well visualized. Posterior Communicating Arteries: Patent bilaterally. 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 Vertebral arteries: The right is dominant. CT ANGIOGRAM OF THE NECK: If present, stenosis of the carotid bulbs is measured based on NASCET criteria i.e area of maximum stenosis compared to the cervical ICA distal to the bulb. Calcified atherosclerotic plaque in the aortic arch and near the origin of the left vertebral artery without significant stenoses. The origin of the vessels otherwise is patent bilaterally. Calcified atherosclerotic plaque in the bilateral carotid bulb results in mild stenosis (less than 50%). Right Carotid Artery: Otherwise the common carotid, internal and external carotid arteries at the level of the neck are normal in caliber, and patent, no evidence of stenoses. Left carotid artery: Otherwise the common carotid, internal and external carotid arteries at the level of the neck are normal in caliber, and patent, no evidence of stenoses. Vertebral Arteries: Both are normal in morphology and caliber. Both are codominant. No significant stenosis is seen. IMPRESSION: 1. No large vessel occlusion or hemodynamically significant stenosis of the carotid or vertebral arteries. 2. Mild stenosis of the bilateral carotid bulbs with atherosclerotic changes (less than 50%). Signed by: Dr. Anat Riena M.D. on 08/12/2019 11:24 AM
[2019-08-12 11:33] LABS: BILIRUBIN,URINE NEGATIVE (NEGATIVE); CLARITY,URINE CLEAR (CLEAR); COLOR,URINE YELLOW (YELLOW); KETONES,URINE NEGATIVE (NEGATIVE); LEUKOCYTE ESTERASE ,URINE SMALL (NEGATIVE); NITRITE,URINE NEGATIVE (NEGATIVE); PROTEIN,URINE DIPSTICK NEGATIVE (NEGATIVE); URINE UROBILINOGEN 0.2 mg/dL (0.2 - 1)
[2019-08-12] MEDS: SODIUM CHLORIDE 0.9% 1000ML 1,000 ML IV SCH ×2 (11:34→21:45)
[2019-08-12] MEDS: FAMOTIDINE 20 MG/2 ML VIAL IV SCH ×2 (11:34→21:45)
--- NOTE | 2019-08-12 11:34 | Diagnostic Imaging Report ---
EXAMINATION: MRI of the brain without contrast. HISTORY: Acute infarct, left facial weakness and drooping since the night before COMPARISON: Head CT performed the same day TECHNIQUE: Sagittal T2; axial DWI, T2, FLAIR, T1-IR, T2 gradient echo; coronal FLAIR. FINDINGS: Parenchyma: 1. Focal FLAIR hyperintense and restricted diffusion cortical lesion in the lateral right luke-Rolandic (precentral and postcentral gyri) region and posterior insula, consistent with acute ischemic infarct along the right MCA vascular distribution. No hemorrhagic conversion, poor associated significant mass effect at this time. 2. No mass or hemorrhage. 3. Multiple small chronic lacunar infarcts such as the left frontal hassan radiata, anterior margin of the anterior limb of the left internal capsule, right thalamus, right paramedian luci and tiny right superior cerebellar chronic cortical infarct. 4. Few scattered and mild/moderate confluent periventricular, hassan radiata and centrum semiovale white matter T2 and FLAIR hyperintense foci, most likely nonspecific chronic microvascular ischemic changes. Skull: Unremarkable. Vessels: Expected flow voids present in the major arteries and dural sinuses. Extra-axial spaces: No abnormal signal intensity or mass effect. Brain volume: Within normal limits for age. Ventricles: No hydrocephalus or displacement. Foramen magnum: Unremarkable. Sella: Unremarkable. Paranasal / mastoid sinuses: No significant inflammatory disease. Noted small retention cyst in the right maxillary sinus. IMPRESSION: 1. Acute right luke-Rolandic ischemic infarct without hemorrhagic conversion or significant mass effect at this time. 2. Multiple small chronic lacunar infarct associated above. 3. Moderate chronic microvascular ischemic changes. Signed by: Dr. Anat Reina M.D. on 08/12/2019 11:31 AM
[2019-08-12] MEDS: FOLIC ACID MDV 1 MG in SODIUM CHLORIDE 0.9% 50ML 50 ML IV SCH (11:35)
[2019-08-12 11:46] LABS: AMPHETAMINES SCREEN,URINE NEGATIVE (NEGATIVE); BENZODIAZEPINES SCREEN,URINE NEGATIVE (NEGATIVE); PHENCYCLIDINE SCREEN,URINE NEGATIVE (NEGATIVE)
[2019-08-12 11:52] LABS: BACTERIA,URINE MANY /HPF; EPITHELIAL CELLS,URINE MODERATE /LPF; WBC,URINE (MAN) 21-50 /HPF (0-5)
--- NOTE | 2019-08-12 11:57 | Consultation ---
DATE OF CONSULTATION: 08/12/2019 Cardiology Consultation Thank you for asking me to see this nice lady again in consultation. Ms. Solomon is a very elderly 84-year-old woman known to me for many years, who was brought to the emergency room today by her son and her for complaint of left-sided facial droop and weakness. HISTORY OF PRESENT ILLNESS: Son tells me that he felt that she was not acting quite right on the evening of the 11 of August. However, she went on the bed and on awakening on the morning of the , they saw that she clearly had some weakness and left-sided facial drooping. PAST MEDICAL HISTORY: Significant for recent hospitalization at [facility] April 10, 2019, for hypertension, congestive heart failure, type 2 adult onset diabetes. She was treated medically with good progress and was seen in my office in last month July 23, which she was clinically stable. Past medical history also significant for longstanding hypertension, longstanding type 2 adult onset diabetes. She has known coronary artery disease with previous coronary stenting in 2002. She has history of breast cancer and cervical cancer. PAST SURGICAL HISTORY: Includes breast surgery, hysterectomy for cervical cancer, remote cholecystectomy, remote spine surgery, fall with hip replacement in June of 2018. PERSONAL AND SOCIAL HISTORY: She is nonsmoker and nondrinker. She lives with family. PHYSICAL EXAMINATION: GENERAL: At this time shows elderly white woman, who is awake and alert. VITAL SIGNS: Blood pressure 130/60. HEAD, EYES, EARS, NOSE, AND THROAT: Shows pupils to be equal. NECK: No jugular venous distention. No bruits. THORAX: Heart sounds S1 and S2 are equal. No murmurs. LUNGS: Clear. ABDOMEN: Protuberant. EXTREMITIES: No cyanosis, clubbing, or edema. LABORATORY DATA: Her CT scan of the head suggest multifocal findings with hypodensities in the left frontal centrum semiovale, also the left head of the caudate nucleus, the right central thalamus and scattered mildly confluent periventricular hassan radiata white matter hypodensities with no evidence of bleeding. ASSESSMENT: 1. Cerebrovascular accident. Timing not clear. 2. History of hypertension. 3. History of type 2 adult onset diabetes. 4. History of coronary artery disease. 5. History of congestive heart failure, likely hypertensive in origin. PLAN: Await Neurology consultation and recommend supportive care. Thank you for asking me to see her in consultation. MD FREDERICK Goodwin/ELSA /[id number] cc: Myra Kaplan MD
[2019-08-12] MEDS: INSULIN REGULAR, HUMAN 100 UNIT/1 ML 3ML VIAL SQ SCH ×3 (12:14→21:00)
[2019-08-12 12:19] LABS: THYROID STIMULATING HORMONE 0.683 uIU/mL (0.350-4.940)
[2019-08-12 12:42] VITALS: BP 113/54
[2019-08-12 12:50] VITALS: BP 113/54
[2019-08-12] MEDS ORDERED: VITAMIN D1000 UNI1 PO (13:03)
[2019-08-12] MEDS ORDERED: PANTOPRAZOLE SO40 MG PO (13:03)
[2019-08-12] MEDS ORDERED: FISH OIL 1,2001 EAC1 PO (13:03)
[2019-08-12] MEDS ORDERED: SERTRALINE HCL100 MG PO (13:03)
[2019-08-12] MEDS ORDERED: CALCIUM 500+D1 EACH PEG (13:03)
[2019-08-12] MEDS ORDERED: CENTRUM SILVER1 EAC3 PO (13:03)
--- NOTE | 2019-08-12 15:04 | Diagnostic Imaging Report ---
Please see dictation of the CT angiogram of the neck performed on the same day for report as it was dictated in combination with the CTA of the neck. Signed by: Dr. Anat Reina M.D. on 08/12/2019 3:01 PM
[2019-08-12] MEDS ORDERED: IOPAMIDOL 370 MG/ML 200 ML INFUS..BTL INJ ONE (15:51)
[2019-08-12] MEDS ORDERED: SODIUM CHLORIDE 0.9% 100 ML ONE (15:51)
[2019-08-12 16:05] VITALS: BP 147/63
[2019-08-12 17:46] LABS: CREATINE KINASE MB 0.5 ng/mL (0-5.0)
--- NOTE | 2019-08-12 19:20 | NUR ---
Patient received lying in bed. AAO x 3. Patient had no complaints of pain. No signs of respiratory distress. IVF infusing at 125 cc /hr. Fall precautions maintained. Patient instructed to call for assistance when needed. Call light within reach.
[2019-08-12 20:00] VITALS: BP 146/60
[2019-08-12 21:00] VITALS: BP 146/60
[2019-08-12] MEDS: HEPARIN SOD (PORCINE) 5,000 UNIT/ML VIAL SC SCH (21:00)
[2019-08-12] MEDS: ATORVASTATIN 10 MG TAB PO SCH (21:45)
[2019-08-13] VITALS (8 sets, daily range): BP systolic 126–154; BP diastolic 60–72
--- NOTE | 2019-08-13 00:16 | Consultation ---
DATE OF CONSULTATION: 08/12/2019 Neurology Consult Note HISTORY OF PRESENT ILLNESS: Ms. Solomon is an 84-year-old right-hand dominant woman with multiple vascular risk factors, admitted to [facility] as an inpatient on August 12, 2019, with a stroke. Upon awakening at approximately 2200 on August 11, 2019, the patient's speech was mildly dysarthric. However, her family attributed this to medication. Ms. Solomon was assisted to the restroom by her , then returned to bed where she returned to sleep. At approximately 0500 on the morning of admission, the patient's noted Ms. Solomon to have worsened dysarthria, left facial weakness, mild left arm weakness, poor balance with impairment of gait (worsened from baseline), and mild confusion (reportedly chronic). The patient did not report a visual field cut or other disturbance, numbness, or dizziness. She did not report a headache or other pain. Ms. Solomon was brought to the emergency center at [facility] for further evaluation of her symptoms. Upon arrival in the emergency center, the patient was afebrile with a blood pressure of 138/75 mmHg and a pulse of 117 beats per minute. The patient's neurological examination was significant for left-sided facial weakness, weakness in the left arm and left leg, and "cerebellar findings present." While in the emergency center, the patient underwent a CT of the brain without contrast, which revealed findings consistent with an acute ischemic stroke of the right lateral frontoparietal region. Ms. Solomon was subsequently admitted to [facility] as an inpatient for further evaluation and treatment of her symptoms. Ms. Solomon has not experienced similar symptoms previously. She does not take antiplatelet or anticoagulant medications at home. REVIEW OF SYSTEMS: Confusion (chronic), dysarthria, left facial weakness, weakness of the left arm, poor balance and impairment of gait (worsened from baseline. Otherwise, a 12-point review of systems is negative. PAST MEDICAL HISTORY: Hypertension, hyperlipidemia, diabetes mellitus, coronary artery disease, congestive heart failure, CKD stage IIIB, gastroesophageal reflux disease, breast cancer, and cervical cancer. PAST SURGICAL HISTORY: Cardiac catheterization with stent placed in 2002, repair of a right leg fracture, right breast lumpectomy, cholecystectomy, hysterectomy, lumbar spine surgeries, and bilateral cataract removal. PAST HOSPITALIZATIONS: Surgeries/procedures as listed, childbirth x2, hospitalized in the summer of 2019 with hypertension and congestive heart failure. FAMILY MEDICAL HISTORY: Ms. Solomon's father is from natural causes. Her mother is from an unknown cancer. Ms. Solomon's siblings have or have had various cancers as well as coronary artery disease with myocardial infarctions. Ms. Solomon has two children, a son and a daughter, both of whom are alive and healthy. SOCIAL HISTORY: Ms. Solomon is . She is retired. The patient does not report current or prior tobacco, alcohol, or recreational drug use. HOME MEDICATIONS: Atorvastatin 10 mg by mouth at bedtime daily, calcium with vitamin D one tablet by mouth daily, vitamin D3 of 2000 units by mouth daily, Lasix 20 mg by mouth daily, hydralazine 10 mg by mouth daily, NovoLog 70/30, 68 units injected subcutaneously every morning and 55 units injected subcutaneously every evening, metoprolol 100 mg by mouth daily, multivitamin one tablet by mouth daily, omega-3 fatty acids and fish oil 1200 mg by mouth daily, Protonix 40 mg by mouth daily, sertraline 100 mg by mouth daily, and tramadol 50 mg by mouth every 6 hours as needed for pain. HOSPITAL MEDICATIONS: Aspirin, Lipitor, Pepcid, folic acid, Humulin R, and Zofran. ALLERGIES: MACROBID, DICYCLOMINE, ZOCOR. NO KNOWN FOOD ALLERGIES. NO KNOWN ALLERGIES TO LATEX. NO KNOWN ALLERGIES TO IODINE OR OTHER CONTRAST MATERIALS. PHYSICAL EXAMINATION: VITAL SIGNS: Height 60 inches, weight 171 pounds, BMI 33.4 kg/m2, blood pressure 147/63 mmHg, pulse 64 beats per minute, respiratory rate 16 breaths per minute, and oxygen saturation 98% on room air. GENERAL: The patient is awake and alert, does not appear distressed. Obese. HEENT: Normocephalic, atraumatic. Pupils are surgical. Moist mucous membranes. NECK: Supple. No appreciable thyromegaly. No appreciable carotid bruits. CARDIOVASCULAR: S1, S2, regular rate and rhythm. No murmurs, rubs, or gallops. RESPIRATORY: Clear to auscultation bilaterally. No wheezes, rhonchi, or rales. EXTREMITIES: The skin is warm and dry. No clubbing, cyanosis, or edema. The posterior tibial and dorsalis pedis pulses are 1+ and symmetric. SKIN: No rashes or lesions. NEUROLOGIC: Memory/Attention: The patient is awake and alert, oriented to person, place (hospital, city, state), time (month, year), and situation. Cranial Nerves: Cranial nerve I - not tested. Cranial nerve II, III, IV, and - pupils are surgical. Extraocular movements are intact. No nystagmus. Cranial nerve V - sensation to light touch and pinprick is intact in the bilateral V1 through V3 distributions. Strength in the temporalis and masseter muscles is within normal limits. Cranial nerve VII - the face is asymmetric on the left as are all facial movements. Moderate left central facial weakness is appreciated. Cranial nerve VIII - hearing is diminished to finger rub bilaterally. Cranial nerve IX, X-the soft palate elevates equally and symmetrically. Cranial nerve XI - normal strength of the bilateral sternocleidomastoid and trapezius muscles. Cranial nerve XII - the tongue protrudes midline and moves symmetrically from [id number]. Strength: Bulk is normal. Strength is 5/5 in the right deltoid, biceps, triceps, wrist flexors and extensors, finger flexors and extensors, intrinsic hand muscles and bilateral hip flexors, knee flexors and extensors, ankle dorsiflexion and plantar flexion, and intrinsic foot muscles. Tone is normal in the right arm and both legs. Strength in the left arm is 4 to 4+/5. Tone is mildly diminished in the left arm. DTRs: Deep tendon reflexes are 1+ and symmetric at the triceps and biceps. Deep tendon reflexes are trace and symmetric at the brachioradialis. Deep tendon reflexes are absent and symmetric at the Achilles. Plantar responses are flexor bilaterally. Sensation: Sensation is intact to light touch and pinprick in both arms and both legs. Cerebellar: Azwrxa-knhc-[id number] movements are impaired in the left arm, but within the bounds of paresis. Heel-rinaldi movements are intact without dysmetria or other impairment. Gait: Deferred. Speech: Spontaneous speech is moderately dysarthric without aphasia. Repetition is intact. Involuntary movements: None. Pronator Drift: None. LABORATORY DATA: A comprehensive metabolic panel is significant for an anion gap 17.3, BUN of 32, creatinine of 1.62, estimated GFR of 30, glucose of 174, mildly elevated calcium of 10.7, AST of 35, albumin of 3.2, and globulin of 3.7. Cardiac enzymes are negative x1. BNP 151.1. TSH 0.683. The CBC with differential and platelets is unremarkable. A coagulation profile is within normal limits. A urinalysis is significant for small leukocyte esterase, 6-10 red blood cells, 21-50 white blood cells, many urine bacteria with moderate urine epithelial cells. A urine culture is pending. A urine toxicology screen was negative. DIAGNOSTIC STUDIES: Electrocardiogram 08/12/2019: Sinus rhythm at 68 beats per minute with sinus arrhythmia with first-degree AV block. Left axis deviation. Left bundle branch block. Chest x-ray 08/12/2019: Unchanged cardiomegaly. Mild pulmonary interstitial edema. Patchy opacity at the left lung base, more likely subsegmental atelectasis than superimposed aspiration or pneumonia. CT of the brain without contrast 08/12/2019: There appears to be an acute ischemic stroke in the right lateral frontoparietal region. There are multiple chronic lacunar infarcts seen in the left frontal centrum semiovale, left caudate head, right central thalamus. There is mild diffuse cerebral atrophy with compensatory dilatation of the ventricles, compatible with the patient's age. Their findings compatible with moderate chronic small vessel ischemic disease. MRI of the brain without contrast 08/12/2019: There is an acute ischemic stroke in the right perirolandic region. There are multiple chronic lacunar infarcts in the left frontal hassan radiata, anterior limb of the left internal capsule, right thalamus, right paramedian luci, and right superior cerebellum. There is mild diffuse cerebral atrophy with compensatory dilatation of the ventricles, appropriate for the patient's age. There are scattered confluent T2/FLAIR hyperintense foci throughout the supratentorial and infratentorial white matter compatible with moderate chronic small vessel ischemic disease. ASSESSMENT AND PLAN: Ms. Solomon is an 84-year-old right-hand dominant woman with multiple vascular risk factors, admitted to [facility] as an inpatient on August 12, 2019, with an ischemic stroke in the distal right middle cerebral artery distribution. The patient's neurological examination is significant for moderate dysarthria, moderate left central facial weakness, and mild weakness of the left arm. The patient's laboratory data and other diagnostic studies have been reviewed and are documented above. RECOMMENDATIONS: Are as follows: 1. A lipid panel and hemoglobin A1c will be ordered with morning labs on August 13, 2019, 2. An echocardiogram has been ordered and is pending. 3. Ms. Solomon will be prescribed aspirin 81 mg by mouth daily for stroke prophylaxis. 4. Allow permissive hypertension for 24-48 hours status post stroke. The patient's blood pressures may be gradually normalized beginning on August 13, 2019. The patient's goal blood pressure prior to discharge is less than 140/90 mmHg. 5. The patient's goal total cholesterol is less than 200 with an LDL of less than 70. Follow up the results of the lipid panel. In the interim, treatment with the patient's home medication of atorvastatin 10 mg by mouth at bedtime daily will be continued. 6. The patient's goal hemoglobin A1c is less than 7.0. Follow up the results of the hemoglobin A1c. Tight glycemic control is recommended while the patient is hospitalized. Defer treatment to the primary service. 7. Physical Therapy has been consulted; this evaluation is pending. Speech therapy has seen the patient and recommends a modified barium swallow. This study will be performed on August 13, 2019. 8. GI prophylaxis with Pepcid 20 mg intravenously every 12 hours. DVT prophylaxis with heparin 5000 units subcutaneously every 12 hours. 9. The patient's urinalysis reveals small leukocyte esterase, 21-50 white blood cells, and many bacteria. Nitrites are negative. A urine culture is pending. Consider treatment with intravenous antibiotics for possible urinary tract infection. 10. Defer treatment of the remaining medical comorbidities to the primary and other services following the patient. 11. Anticipated disposition: correction facility versus home with home health in 2-3 days. Thank you for this consultation. I will continue to follow the patient while she remains in the hospital. TIME SPENT: 70 minutes. Myra Kaplan MD CP/ELSA /[id number] EZIO
[2019-08-13] MEDS: SODIUM CHLORIDE 0.9% 1000ML 1,000 ML IV SCH ×3 (01:19→16:42)
--- NOTE | 2019-08-13 05:20 | NUR ---
Patient stated she felt her blood sugar was dropping. BS checked and recorded as 193.
[2019-08-13 05:59] LABS: BASOPHILS # (AUTO) 0.1 (0.0-0.1); BASOPHILS % 0.8 % (0.0-1.0); EOSINOPHILS # (AUTO) 0.2 (0.0-0.4); EOSINOPHILS % 2.4 % (0.0-6.0); HEMATOCRIT 35.5 % (34.2-44.1); HEMOGLOBIN 11.6 g/dL (12.0-16.0); LYMPHOCYTES # (AUTO) 2.1 (1.0-3.2); LYMPHOCYTES % 34.7 % (18.0-39.1); MEAN CORPUSCULAR HEMOGLOBIN 31.6 pg (28-32); MEAN CORPUSCULAR HGB CONC 32.7 g/dL (31-35); MEAN CORPUSCULAR VOLUME 96.7 fL (81-99); MONOCYTES # (AUTO) 0.7 (0.2-0.8); MONOCYTES % 10.7 % (4.4-11.3); NEUTROPHILS # (AUTO) 3.1 (2.1-6.9); NEUTROPHILS % 51.1 % (38.7-80.0); PLATELET COUNT 136 x10e3/uL (140-360); RED BLOOD COUNT 3.67 x10e6/uL (3.6-5.1); RED CELL DISTRIBUTION WIDTH 14.6 % (11.7-14.4)
[2019-08-13 06:22] LABS: ALBUMIN 2.8 g/dL (3.5-5.0); ANION GAP 14.9 mmol/L (8-16); CALCIUM 9.6 mg/dL (8.4-10.2); CREATININE, SERUM 1.49 mg/dL (0.57-1.11); MAGNESIUM 2.1 MG/DL (1.3-2.1); PHOSPHORUS 2.3 MG/DL (2.3-4.7); POTASSIUM 3.9 mmol/L (3.5-5.1)
[2019-08-13 06:57] LABS: CREATINE KINASE MB 0.6 ng/mL (0-5.0)
[2019-08-13 07:11] LABS: CHOL/HDL RATIO 3.2 (3.0-3.6)
[2019-08-13] MEDS: INSULIN REGULAR, HUMAN 100 UNIT/1 ML 3ML VIAL SQ SCH ×4 (07:30→21:00)
[2019-08-13] MEDS: FAMOTIDINE 20 MG/2 ML VIAL IV SCH ×2 (08:57→20:25)
[2019-08-13] MEDS: HEPARIN SOD (PORCINE) 5,000 UNIT/ML VIAL SC SCH ×2 (09:03→21:00)
[2019-08-13] MEDS: FOLIC ACID MDV 1 MG in SODIUM CHLORIDE 0.9% 50ML 50 ML IV SCH (09:50)
[2019-08-13] MEDS: ASPIRIN 81 MG ENTERIC COATED PO SCH (10:46)
[2019-08-13] MEDS ORDERED: TRAMADOL HCL 50 MG TAB PO PRN (12:15)
[2019-08-13] MEDS ORDERED: DEXTROSE 50% SYRINGE 50 ML IV PRN ×2 (12:15)
[2019-08-13] MEDS: FUROSEMIDE 20 MG TAB PO SCH (13:04)
[2019-08-13] MEDS: CALCIUM CARBONATE 500 MG CHEWABLE TABS PO SCH (13:04)
[2019-08-13] MEDS: CHOLECALCIFEROL 1,000 UNIT TAB PO SCH (13:04)
[2019-08-13] MEDS: HYDRALAZINE HCL 10 MG TAB PO SCH (13:04)
[2019-08-13] MEDS: PANTOPRAZOLE SOD 40 MG TABEC PO SCH (13:25)
[2019-08-13] MEDS: SERTRALINE HCL 100 MG TAB PO SCH (13:25)
--- NOTE | 2019-08-13 15:32 | Diagnostic Imaging Report ---
PROCEDURE: X-RAY MODIFIED BARIUM SWALLOW COMPARISON: None. INDICATION: Aspiration Radiation Details: Fluoroscopy time: 3.2 minutes Cumulative dose: 13.3 mGy DISCUSSION: Fluoroscopic examination was performed in conjunction with speech pathology during swallowing a variety of thin and thick liquid consistencies. Provided images demonstrate laryngeal penetration and aspiration. CONCLUSION: Modified barium swallow demonstrating laryngeal penetration and aspiration. Please refer to the speech pathology report for further details. Signed by: Lubna Rowell MD on 08/13/2019 3:29 PM
[2019-08-13] MEDS ORDERED: INSULIN REGULAR, HUMAN 100 UNIT/1 ML 3ML VIAL SQ SCH (16:30)
--- NOTE | 2019-08-13 18:35 | NUR ---
Nutrition Screen Note RD Recommendation for Physician: Continue cardiac diet and pureed/nectar thick liquid consistency per ST Plan of Care: RD following, monitoring for tolerance and adequacy Nutrition reason for involvement: MST 2 Primary Diagnose(s): CVA and weakness PMH: HTN, HLD, diabetes, CAD, CHF, CKD stage 3, GERD, breast cancer, and cervical cancer Ht: 60 in Wt: 171 lb BMI: 33.39 kg/m2 IBW:[address] Assessment: (08/13/19) Chart reviewed. Labs and meds reviewed. Pt is an 84 year old female admitted with CVA and weakness. Pt was sleeping at time of visit; therefore, spoke to family member. Per family member, pt typically has a good appetite and eats all of her meals. Pt had lost wt in the past 4 months. Family member stated pt used to weigh 193 lbs 4 months ago and now weighs 171 lbs. Family member attributed wt loss due to fluid removal and pt eating smaller portions. No N/V/D/C reported. ST evaluated pt and recommended a pureed/nectar thick liquid diet consistency. Current Diet: cardiac diet and pureed/nectar thick liquid consistency Malnutrition Evaluation (08/13/19) The patient does not meet criteria for a specified degree of malnutrition at this time. Will re-evaluate at follow-up as appropriate. Diet Education Needs Assessment: Diet education not indicated. Nutrition Care Level: low Signed: Kathleen Atkins, RD, LD
--- NOTE | 2019-08-13 19:15 | NUR ---
PATIENT IS IN STABLE CONDITION WITH NO S/S OF RESPIRATORY DISTRESS. IV FLUIDS INFUSING. NO PAIN VOICED. BED ALARM APPLIED. CALL LIGHT IS WITHIN REACH, PATIENT INSTRUCTED TO CALL FOR ASSISTANCE NEEDED. REPORT GIVEN TO ONCOMING NURSE.
--- NOTE | 2019-08-13 19:25 | NUR ---
Patient received lying in bed. AAO x 3. No acute distress noted. Complained about feeling chilly. Extra warm blankets provided. Safety measures implemented. Call light within reach.
[2019-08-13] MEDS: ATORVASTATIN 10 MG TAB PO SCH (20:25)
[2019-08-13] MEDS ORDERED: ATORVASTATIN 10 MG TAB PO SCH (21:00)
[2019-08-14] VITALS (7 sets, daily range): BP systolic 128–164; BP diastolic 63–75
[2019-08-14] MEDS: SODIUM CHLORIDE 0.9% 1000ML 1,000 ML IV SCH ×3 (01:19→17:39)
--- NOTE | 2019-08-14 04:42 | NUR ---
dialysis equipment technician reported patient having AFIB. EKG rhythm records atrial fibrillation with rapid ventricular response; left bundle branch block; ventricular rate 117. Dr. Farris notified and stated he was aware of patient's Afib status. No new order received.
[2019-08-14] MEDS: INSULIN REGULAR, HUMAN 100 UNIT/1 ML 3ML VIAL SQ SCH ×4 (07:30→21:00)
[2019-08-14] MEDS: SERTRALINE HCL 100 MG TAB PO SCH ×2 (08:29→12:25)
[2019-08-14] MEDS: MULTIVITAMINS/MINERALS TAB PO SCH (08:40)
[2019-08-14] MEDS: CHOLECALCIFEROL 1,000 UNIT TAB PO SCH (08:40)
[2019-08-14] MEDS: OMEGA 3 POLYUNSAT FATTY ACIDS 1000 MG SOFTGEL PO SCH (08:40)
[2019-08-14] MEDS: FUROSEMIDE 20 MG TAB PO SCH (08:40)
[2019-08-14] MEDS: CALCIUM CARBONATE 500 MG CHEWABLE TABS PO SCH (08:40)
[2019-08-14] MEDS: PANTOPRAZOLE SOD 40 MG TABEC PO SCH (08:41)
[2019-08-14] MEDS: FAMOTIDINE 20 MG/2 ML VIAL IV SCH ×2 (08:41→21:00)
[2019-08-14] MEDS: HYDRALAZINE HCL 10 MG TAB PO SCH (08:41)
[2019-08-14] MEDS: ASPIRIN 81 MG ENTERIC COATED PO SCH (08:41)
[2019-08-14] MEDS: METOPROLOL SUCCINATE 50 MG TAB XL PO SCH (08:41)
[2019-08-14] MEDS: HEPARIN SOD (PORCINE) 5,000 UNIT/ML VIAL SC SCH (08:42)
[2019-08-14] MEDS ORDERED: OMEGA PO SCH (09:00)
[2019-08-14] MEDS ORDERED: FATTY ACIDS PO SCH (09:00)
[2019-08-14] MEDS ORDERED: NON-FORMULARY MEDICATION (Mu-Vits-Min Th/Lycopene/Lutein (Centrum Silver Tablet) 1 TAB) PO SCH (09:00)
[2019-08-14] MEDS ORDERED: FISH OIL PO SCH (09:00)
[2019-08-14] MEDS ORDERED: [UNRECOGNIZED DRUG - OTHER] PO SCH (09:00)
[2019-08-14] MEDS: FOLIC ACID MDV 1 MG in SODIUM CHLORIDE 0.9% 50ML 50 ML IV SCH (09:20)
[2019-08-14] MEDS: AMIODARONE HCL 200 MG TAB PO SCH (11:07)
[2019-08-14] MEDS: APIXAB 2.5 MG TABLET PO SCH ×2 (11:07→21:00)
--- NOTE | 2019-08-14 19:05 | NUR ---
PATIENT IS IN STABLE CONDITION WITH NO S/S OF RESPIRATORY DISTRESS-NO PAIN VOICED. IV FLUIDS INFUSING. TELEMETRY APPLIED. DIAPER APPLIED. BED ALARM APPLIED. CALL LIGHT IS WITHIN REACH, PATIENT INSTRUCTED TO CALL FOR ASSISTANCE NEEDED. REPORT GIVEN TO ONCOMING NURSE.
--- NOTE | 2019-08-14 20:04 | NUR ---
GAVE REPORT TO TEODORO KELLY RN.
--- NOTE | 2019-08-14 20:05 | NUR ---
preport received on this patient at this time due to change in assignment. patient lying quietly in bed. no c/o pain noted. ivf continue to infuse without difficulty. pm assessment complete. call blevins placed within reach. patient instructed to call for assistance when needed.
[2019-08-14] MEDS: ATORVASTATIN 10 MG TAB PO SCH (21:00)
[2019-08-15] VITALS: BP 120/84
[2019-08-15] MEDS: SODIUM CHLORIDE 0.9% 1000ML 1,000 ML IV SCH (02:20)
--- NOTE | 2019-08-15 03:00 | NUR ---
patient [place] [facility] [place]. lrg soft bm noted at this time.
[2019-08-15 04:00] VITALS: BP 168/72
[2019-08-15 05:28] LABS: BASOPHILS % 0.3 % (0.0-1.0); EOSINOPHILS # (AUTO) 0.1 (0.0-0.4); EOSINOPHILS % 2.3 % (0.0-6.0); HEMATOCRIT 31.3 % (34.2-44.1); HEMOGLOBIN 10.2 g/dL (12.0-16.0); LYMPHOCYTES # (AUTO) 1.9 (1.0-3.2); MEAN CORPUSCULAR HEMOGLOBIN 31.2 pg (28-32); MEAN CORPUSCULAR HGB CONC 32.6 g/dL (31-35); MEAN CORPUSCULAR VOLUME 95.7 fL (81-99); MONOCYTES # (AUTO) 0.7 (0.2-0.8); MONOCYTES % 10.5 % (4.4-11.3); NEUTROPHILS # (AUTO) 3.4 (2.1-6.9); NEUTROPHILS % 55.6 % (38.7-80.0); PLATELET COUNT 135 x10e3/uL (140-360); RED BLOOD COUNT 3.27 x10e6/uL (3.6-5.1); RED CELL DISTRIBUTION WIDTH 14.4 % (11.7-14.4)
[2019-08-15 05:45] LABS: ANION GAP 13.7 mmol/L (8-16); CALCIUM 8.5 mg/dL (8.4-10.2); CREATININE, SERUM 1.35 mg/dL (0.57-1.11); POTASSIUM 3.7 mmol/L (3.5-5.1)
[2019-08-15 08:02] VITALS: BP 172/69
[2019-08-15 08:16] VITALS: BP 172/69
[2019-08-15] MEDS: PANTOPRAZOLE SOD 40 MG TABEC PO SCH (08:22)
[2019-08-15] MEDS: FAMOTIDINE 20 MG/2 ML VIAL IV SCH (08:24)
[2019-08-15] MEDS: INSULIN REGULAR, HUMAN 100 UNIT/1 ML 3ML VIAL SQ SCH ×2 (08:24→12:31)
[2019-08-15] MEDS: FUROSEMIDE 20 MG TAB PO SCH (08:25)
[2019-08-15] MEDS: AMIODARONE HCL 200 MG TAB PO SCH (08:25)
[2019-08-15] MEDS: HYDRALAZINE HCL 10 MG TAB PO SCH (08:25)
[2019-08-15] MEDS: ASPIRIN 81 MG ENTERIC COATED PO SCH (08:25)
[2019-08-15] MEDS: MULTIVITAMINS/MINERALS TAB PO SCH (08:25)
[2019-08-15] MEDS: OMEGA 3 POLYUNSAT FATTY ACIDS 1000 MG SOFTGEL PO SCH (08:25)
[2019-08-15] MEDS: APIXAB 2.5 MG TABLET PO SCH (08:25)
[2019-08-15] MEDS: CHOLECALCIFEROL 1,000 UNIT TAB PO SCH (08:26)
[2019-08-15] MEDS: SERTRALINE HCL 100 MG TAB PO SCH (08:26)
[2019-08-15] MEDS: CALCIUM CARBONATE 500 MG CHEWABLE TABS PO SCH (08:26)
[2019-08-15] MEDS: METOPROLOL SUCCINATE 50 MG TAB XL PO SCH (08:31)
[2019-08-15] MEDS ORDERED: ONDANSETRON HCL 4 MG ORAL DISINTEGRATING TAB PO PRN (10:00)
--- NOTE | 2019-08-15 10:28 | NUR ---
RETIREMENT FACILITY DISCHARGE INFORMATION PATIENT HAS BEEN ACCEPTED TO: NAME: [facility] ADDRESS: [id number] MD: MARISSA ROOM: 601 NURSE CALL REPORT TO: [phone]
[2019-08-15] MEDS: FOLIC ACID MDV 1 MG in SODIUM CHLORIDE 0.9% 50ML 50 ML IV SCH (11:27)
[2019-08-15 11:38] VITALS: BP 150/66
[2019-08-15] MEDS ORDERED: PIPER-TAZ 3.375 GM 50 ML IV SCH (12:30)
[2019-08-15] MEDS ORDERED: ARTIFICIAL TEARS (OPTH) 15 ML BTL OU SCH (13:00)
--- NOTE | 2019-08-15 14:51 | NUR ---
IMM LETTER EXPLAINED TO PT. PT VERBALIZED UNDERSTANDING. IMM LETTER SIGNED. COPY TO PT AND COPY TO CHART.
[2019-08-15 15:36] VITALS: BP 138/65
--- NOTE | 2019-08-15 15:37 | Progress Note ---
DATE: Internal Medicine Progress Note SUBJECTIVE: The patient is complaining of dry eyes. PHYSICAL EXAMINATION: HEART: Showed irregularly irregular heart rate. Normal S1 and S2 sound. LUNGS: Clear bilaterally. ABDOMEN: Soft. EXTREMITIES: Show no evidence of cyanosis, edema, or trauma. VITAL SIGNS: Blood pressure 150/66, temperature 96.5, heart rate 75 per minute, respiratory rate 16 per minute, and oxygen saturation 96%. LABORATORY STUDIES: On the blood work, we have a CBC with a white blood count 6.19, hemoglobin 10.2, hematocrit 31.3, and platelet count 135,000. On the BMP; sodium 142, potassium 3.7, chloride 112, CO2 of 20, BUN 14, creatinine 1.35, glucose 210, and calcium 8.5. Toxicology negative essentially. Urinalysis essentially unremarkable except for some few red blood cells and white blood cells, but negative glucose, small amount of leukocytes. Urine culture show ESBL in the urine. FINAL IMPRESSION: 1. Right cerebrovascular accident with facial deviation. 2. Paroxysmal atrial fibrillation. 3. Chronic anemia. 4. Hypertension. 5. Hypercholesterolemia. 6. Urinary tract infection. PLAN OF TREATMENT: The patient will continue with folic acid 1 mg IV daily, normal saline 125 mL an hour, amiodarone 400 mg daily, Eliquis 2.5 mg twice a day, aspirin 81 mg daily, Lipitor 10 mg daily, calcium 500 mg daily, cholecalciferol 2000 units daily, and Pepcid 20 mg IV, which is going to be discontinued. Continue furosemide 20 mg daily, hydralazine 10 mg daily, metoprolol 100 mg daily, multivitamin one tablet daily, omega-3 fatty acid 1000 mg p.o. daily, Zofran 4 mg p.o. every 4 hours as needed for nausea and vomiting, and Protonix 40 mg daily. Continue monitoring blood sugar before meals and at bedtime. Continue sertraline 100 mg daily and tramadol 50 mg daily as needed. I am going to start the patient on Zosyn 3.375 g IV every 6 hours for at least three days because of the ESBL in the urine. We are going to also order Artificial Tears one drop to each eye every 4 hours as needed. MD LAURA Perez/ELSA /[id number]
--- NOTE | 2019-08-15 18:00 | NUR ---
Pt discharged to [facility] at this [facility]. 0 s/s of acute distress noted at time of discharge. Family is aware of discharge and is at bedside.
== END 2019-08-15 18:03 | DRG 64 ==
LOC: ER 08:41 → ERHOLD 09:19 → MED/SURG3 12:20
DX: I63.511 Cerebral infarction due to unspecified occlusion or stenosis of right middle cerebral artery (principal); I50.23 Acute on chronic systolic (congestive) heart failure; N39.0 Urinary tract infection, site not specified; Z16.12 Extended spectrum beta lactamase (ESBL) resistance; E11.9 Type 2 diabetes mellitus without complications; I25.10 Atherosclerotic heart disease of native coronary artery without angina pectoris; E78.5 Hyperlipidemia, unspecified; I11.0 Hypertensive heart disease with heart failure; R47.1 Dysarthria and anarthria; R29.810 Facial weakness; I48.0 Paroxysmal atrial fibrillation; G83.24 Monoplegia of upper limb affecting left nondominant side; D64.9 Anemia, unspecified; E78.00 Pure hypercholesterolemia, unspecified; B96.20 Unspecified Escherichia coli [E. coli] as the cause of diseases classified elsewhere; Z79.4 Long term (current) use of insulin
CPT/HCPCS: 36415; 70450; 70496; 70498; 70551; 71045; 74230; 80048; 80053; 80061; 80307; 81001; 82550; 82553; 82948; 83036; 83735; 83880; 84100; 84132; 84443; 84484; 85025; 85610; 85730; 87086; 87186; 93005; 93041; 93306; 93880; 97139; 99284; J1644; J1817; J2543; J7030; J7050; Q9967